=== PATIENT | female | born 1945 | race Caucasian/White ===

== ENCOUNTER 2016-12-26 12:44 | Emergency (ER) | payer MEDICARE, BC ==
[2013-05-27 15:21] VITALS: BMI 32.7
[~2016-12-26 12:44] MED LIST: AMBIEN10 MG PO; ASPIRIN 81 MG E81 MG PO; BETAPACE 80 MG80 MG PO; CARDIZEM120 MG PO; CO Q1060 MG PO; CORDARONE200 MG PO; COREG12.5 MG PO; CRANBERRY PILLS PO; FLAXSEED OIL1000 MG PO; HAWTHORN PO; KRILL OIL PO; LIORESAL 10 MG10 MG PO; MAXZIDE-25 MG T1 TAB PO; MILK THISTLE140 MG PO; MULTIPLE VITAMI1 TA1 PO; NORCO 10/325 TA1 TA1 PO; PLAVIX75 MG PO; PROBIOTICS PO; SLOW-MAG 64 MG64 MG PO; VITAMIN D31000 UNIT PO
[2016-12-26 13:38] LABS: BASOPHILS 0.3 % (0-2); EOSINOPHILS 1.5 % (0-7); HEMATOCRIT 44.8 % (36.0-48.0); HEMOGLOBIN 14.8 g/dL (12-16); IMMATURE GRANULOCYTES 0.3 % (0-5); LYMPHOCYTES 32.3 % (15-50); MCH 28.2 pg (26.0-34.0); MCV 85.3 fL (80.0-100.0); MEAN PLATELET VOLUME 10.2 fL (7.4-10.4); MONOCYTES 6.9 % (2-11); NEUTROPHILS 58.7 % (40-80); PLATELET COUNT 274 10x3/uL (130-400); RBC 5.25 10x6/uL (4.00-5.40); RDW 13.8 % (11.5-14.5); WBC 6.1 10x3/uL (4.8-10.8)
[2016-12-26 13:58] LABS: ALBUMIN 3.9 g/dL (3.4-5.0); ALKALINE PHOSPHATASE 112 U/L (46-116); ALT (SGPT) 22 U/L (10-68); BILIRUBIN - TOTAL 0.36 mg/dL (0.2-1.3); CALC OSMOLALITY 279 mosm/kg (275-300); CALCIUM 9.1 mg/dL (8.5-10.1); CARBON DIOXIDE 25.9 mmol/L (21.0-32.0); CHLORIDE - SERUM 102 mmol/L (98-107); CREATININE - SERUM 0.8 mg/dL (0.6-1.3); GLUCOSE 96 mg/dL (74-106); POTASSIUM - SERUM 4.2 mmol/L (3.5-5.1); SODIUM 138 mmol/L (136-145); UREA NITROGEN 23 mg/dL (7-18); eGFR NON AFRICAN AMERICAN 75 mL/min (90-120)
== END 2016-12-26 14:55 | disposition home or self-care (01) ==
LOC: D.ER 12:44
PROVIDERS: Emergency Medicine
DX: I48.91 Unspecified atrial fibrillation (principal); I50.9 Heart failure, unspecified; I10 Essential (primary) hypertension

== ENCOUNTER 2017-01-20 09:21 | Outpatient (CLI) | payer MEDICARE, BC ==
--- NOTE | ~2017-01-20 | HEMODYNAMI ---
PATIENT:JAMES RUTHERFORD MEDICAL RECORD: [id number] : 47 LOCATION:[facility] ADMISSION DATE: 01/20/17 Generatedon:01/20/201711:02 Patient name: JAMES RUTHERFORD Patient #: [id number] SSN: : 1945 Date of study: 01/20/2017 Page: Of Hemodynamic Procedure Report Patient Data Patient Demographics Procedure consent was obtained First Name: JAMES Gender: Female Last Name: SANGEETA : 1945 [facility] Initial: JEN Age: 71 year(s) Patient #: [id number] Race: Unknown Additional ID: [id number] Contact details Address: [place] [address] State: [place] City: [place] Zip code: [address] Past Medical History Allergies: No known allergies Admission Admission Data Admission Date: 01/20/2017 Admission Time: 9:21 Admit Source: Other Height (in.): 65 BSA: 2.03 (m2) Height (cm.): 165.1 BMI: 35.44 (kg/m2) Weight (lbs.): 213 Weight (kg.): 96.62 Lab Results Lab Result Date: 01/20/2017 Lab Result Time: 0:00 Biochemistry Name Units Result Min Max BUN mg/dl 23 --(----)-* 7 18 Creatinine mg/dl 1 --(--*-)-- 0.6 1.3 CBC Name Units Result Min Max Hemoglobin g/dl 14.4 --(*---)-- 13.5 17.5 Procedure Procedure Types Cath Procedure Diagnostic Procedure LHC LHC w/Coronaries Miscellaneous Procedures Moderate Sedation up to 15 minutes Procedure Description Procedure Date Procedure Date: 01/20/2017 Procedure Start Time: 10:56 Procedure End Time: 11:02 Procedure Staff Name Function Yeyo Barnhart MD Performing Physician Mela Renae RT Scrub Sunshine Martínez RT Monitor Kirby Barba RN Nurse Procedure Data Cath Procedure Fluoroscopy Diagnostic fluoroscopy Total fluoroscopy Time: 0.8 time: 0.8 min min Diagnostic fluoroscopy Total fluoroscopy dose: 150 dose: 150 mGy mGy Contrast Material Contrast Material Type Amount (ml) Isovue 300 47 Entry Location Entry Primary Successful Side Size Upsize Upsize Entry Closure Succes sful Closure Location (Fr) 1 (Fr) 2 (Fr) Remarks Device Remarks Femoral Right 5 Fr Exoseal artery Estimated blood loss: 10 ml Diagnostic catheters Device Type Used For End Catheter Placement Cordis 5Fr Pigtail Procedure Catheter (MP) Cordis 5Fr JL 4.0 Procedure Catheter (MP) Cordis 5Fr 3DRC Catheter Procedure (MP) Procedure Complications No complications Procedure Medications Medication Administration Route Dosage Oxygen NC 2 l/min Heparin Flush Bag added to field 2 bags (1000units/500ml NS) 0.9% NaCl I.V. 100 ml/hr Fentanyl I.V. 50 mcg Versed I.V. 1 mg Fentanyl I.V. 50 mcg Versed I.V. 1 mg Fentanyl I.V. 50 mcg Fentanyl I.V. 50 mcg Hemodynamics Rest BSA: 2.03 (m2) HGB: 14.4 (g/dl) O2 Consumption: Estimated: 173.94 (ml/min) O2 Co nsumption indexed: Estimated:85.68 (ml/min/m) Heart Rate: 53 (bpm) Pressure Samples Time Site Value (mmHg) Purpose Heart Use Rate(bpm) 10:57 LV 145/12,17 Snapshot 62 Snapshots Pre Cath Intra NCS Post Cath Vital Signs Time Heart Resp SPO2 etCO2 NIBP (mmHg) Rhythm Pain Sedation Rate (ipm) (%) (mmHg) Status Level (bpm) 10:42:49 57 16 96 0 169/73(117) NSR 0 (11) 10(A) , No pain 10:47:21 53 19 96 41.8 153/60(124) NSR 0 (11) 10(A) , No pain 10:51:46 52 18 94 35.8 138/64(105) NSR 0 (11) 10(A) , No pain 10:56:45 56 17 99 36.5 Measuring NSR 0 (11) 10(A) , No pain 10:57:07 51 17 98 37.3 136/53(102) NSR 0 (11) 10(A) , No pain 11:01:31 51 18 96 34.3 130/56(109) NSR 0 (11) 9(A) , No pain Medications Time Medication Route Dose Verified Delivered Reason Notes Effec tiveness by by 10:44:04 Oxygen NC 2 Yeyo Orr Per l/min Bronwyn Barba RN physician 10:44:13 Heparin Flush added 2 Yeyo Orr used for Bag to bags Bronwyn Barba RN procedure (1000units/500ml field NS) 10:44:23 0.9% NaCl I.V. 100 Yeyo Orr Per ml/hr Bronwyn Barba RN physician 10:53:03 Fentanyl I.V. 50 Yeyo Orr for matt Barba RN sedation 10:53:09 Versed I.V. 1 mg Yeyo Orr for Bronwyn Barba RN sedation 10:56:05 Fentanyl I.V. 50 Yeyo Davisy for matt Barba RN sedation 10:56:10 Versed I.V. 1 mg Yeyo Orr for Bronwyn Barba RN sedation 10:57:22 Fentanyl I.V. 50 Yeyo Orr for matt Barba RN sedation 10:59:28 Fentanyl I.V. 50 Yeyo Davisy for matt Barba RN sedation Procedure Log Time Note 9:50:07 Kirby Barba RN sent for patient. Start room use. 10:28:55 Patient Height : 65 inches 10:28:58 Patient Weight : 213 lbs 10:29:00 Admit Source: Other 10:33:29 Lab Result : BUN 23 mg/dl 10:33:29 Lab Result : Hemoglobin 14.4 g/dl 10:33:29 Lab Result : Creatinine 1 mg/dl 10:34:04 Diagnostic Cath status Elective 10:34:31 Time tracking: Regular hours 10:34:36 Plan of Care:Hemodynamics will remain stable., Cardiac rhythm will remain stable., Comfort level will be maintained., Respiratory function will remain adequate., Patient/ family verbilizes understanding of procedure., Procedure tolerated without complication., Recovers from procedure without complications.. 10:34:44 Patient received from Pre/Post Procedure Room to CCL 3 Alert and oriented. Tansferred to table in Supine position. 10:34:46 Warm blankets applied, and hortencia hugger turned on for patient comfort. 10:34:46 Correct patient and procedure confirmed by team. 10:34:48 Signed procedure consent form obtained from patient. 10:35:02 H&P Date Dictated: 01/09/2017 Within 30 days and on chart., H&P Addendum completed by physician on day of procedure. (MUST COMPLETE FOR ALL OUTPATIENTS). 10:35:03 Pre-procedure instructions explained to patient. 10:35:05 Family in waiting room. 10:35:08 Patient NPO since Midnight. 10:35:28 Patient allergic to No known allergies 10:35:32 Is the patient allergic to Iodine/contrast media? No. 10:35:42 Is patient on blood thinner?No 10:35:45 Patient diabetic? No. 10:35:50 Snore? Yes 10:35:51 Sleep apnea? No 10:36:22 IV patent on arrival in left forearm with 0.9% NaCl at [facility]. 10:36:30 Lab results completed and on chart. 10:36:34 Right Radial & Right Groin area was prepped with chlora-prep and draped in sterile fashion 10:36:35 Alarms reviewed by R. N. 10:36:36 Sharps counted by scrub and verified by R.N. 10:41:12 ECG and BP/O2 sat monitors applied to patient. 10:41:17 Vital chart was started 10:42:00 Full Disclosure recording started 10:44:04 Oxygen 2 l/min NC was administered by Kirby Barba RN; Per physician; 10:44:13 Heparin Flush Bag (1000units/500ml NS) 2 bags added to field was administered by Kirby Barba RN; used for procedure; 10:44:23 0.9% NaCl 100 ml/hr I.V. was administered by Kirby Barba RN; Per physician; 10:47:08 Baseline sample Acquired. 10:47:14 Rhythm: sinus rhythm 10:47:21 Physician paged 10:52:01 Zero performed for pressure channel P1 10:52:06 Zero performed for pressure channel P1 10:52:14 Zero performed for pressure channel P1 10:52:34 Physician arrived 10:52:35 --------ALL STOP TIME OUT------ 10:52:36 Final Timeout: patient, procedure, and site verified with staff and physician. All members of the team are in agreement. 10:52:38 Right groin site verified by team. 10:52:43 Physical assessment completed. ASA score P 2 - A patient with mild systemic disease as per Yeyo Barnhart MD. 10:52:46 Sedation plan: IV Moderate Sedation Versed, Fentanyl 10:53:03 Fentanyl 50 mcg I.V. was administered by Kirby Barba RN; for sedation; 10:53:09 Versed 1 mg I.V. was administered by Kirby Barba RN; for sedation; 10:55:46 Use device set Femoral Dx 10:55:47 Acist Syringe opened to sterile field. 10:55:47 Bag Decanter opened to sterile field. 10:55:48 Medline Cath Pack opened to sterile field. 10:55:48 Terumo 5Fr [place] Sheath opened to sterile field. 10:55:49 St Gerardo 260cm J .035 wire opened to sterile field. 10:55:50 Acist Hand Control opened to sterile field. 10:55:51 Acist Manifold opened to sterile field. 10:55:51 Diagnostic Infinity 5Fr Multipack catheter opened to sterile field. 10:55:51 Tegaderm 4 x 4 opened to sterile field. 10:55:56 Procedure started. 10:56:05 Fentanyl 50 mcg I.V. was administered by Kirby Barba RN; for sedation; 10:56:08 Local anesthetic to right femoral artery with Lidocaine 2% by Yeyo Barnhart MD.INITIAL ACCESS ONLY 10:56:10 Versed 1 mg I.V. was administered by Kirby Barba RN; for sedation; 10:56:24 A 5 Fr sheath was inserted into the Right Femoral artery 10:56:42 A Cordis 5Fr Pigtail Catheter (MP) was advanced over the wire and used for Procedure. 10:57:22 Fentanyl 50 mcg I.V. was administered by Kirby Barba RN; for sedation; 10:57:28 EF : 60 % 10:57:41 Catheter removed. 10:57:49 A Cordis 5Fr JL 4.0 Catheter (MP) was advanced over the wire and used for Procedure. 10:58:56 Catheter removed. 10:59:04 A Cordis 5Fr 3DRC Catheter (MP) was advanced over the wire and used for Procedure. 10:59:14 Catheter removed. 10:59:21 Cordis 5Fr Exoseal opened to sterile field. 10:59:28 Fentanyl 50 mcg I.V. was administered by Kirby Barba RN; for sedation; 10:59:40 Sheath removed intact; hemostasis achieved with Exoseal to the Right Femoral artery. 10:59:56 Procedure ended.(Physican Out) 11:00:39 Fluoroscopy time 00.80 minutes. 11:00:43 Flurop Dose total: 150 11:00:43 Fluoroscopy dose: 150 mGy 11:00:49 Contrast amount:Isovue 300 47ml. 11:01:04 Sharps counted by scrub and verified by R.N. 11:01:10 Insertion/operative site no bleeding no hematoma. 11:01:23 Post-op/insertion site Right Femoral artery dressed using a 4 x 4 and Tegaderm. 11:01:27 Post right femoral artery:stable 11:01:29 Post Procedure Pulses reassessed and unchanged 11:01:33 Post-procedure physical assessment completed. ASA score P 2 - A patient with mild systemic disease as per Yeyo Barnhart MD. 11:01:45 Post procedure rhythm: unchanged. 11:01:48 Estimated blood loss: 10 ml 11:01:50 Post procedure instruction explained to patient.Patient verbalizes understanding. 11:02:00 Procedure and supply charges have been captured, reviewed, submitted and are correct. 11:02:05 Procedure Complication : No complications 11:02:08 Vital chart was stopped 11:02:08 See physician's report for complete and final results. 11:02:10 Report given to Pre/Post Procedure Room. 11:02:14 Patient transfered to Pre/Post Procedure Room with Bed. 11:02:16 Procedure ended. 11:02:16 Full Disclosure recording stopped 11:02:20 End room use (Document Last) Device Usage Item Name Manufacture Quantity Catalog Hospital Part Current Minimal Lo t# / Number Charge Number Stock Stock Serial# Code Acist Acist 1 [id number] [id number] 20 Syringe [employer] Inc Bag Microtek 1 2002S [id number] 74632 [id number] 5 Decanter [employer] Inc. Medline Cardinal 1 [id number] [id number] 10714 625390 5 Cath Pack Health Terumo 5Fr Terumo 1 [id number] 907097 583200 714197 [address] Gerardo 1 803789 250660 634483 556485 30 260cm J .035 wire Acist Hand Acist 1 89704 686802 087182 645282 5 Control [employer] Systems Inc Acist Acist 1 17201 783427 473143 925259 5 Manifold Medical [employer] Inc Diagnostic Cardinal 1 [id number] 520175 89913 542858 30 Infinity Health 5Fr Multipack catheter Tegaderm 4 3M 1 1626W 725974 036740 054262 5 x 4 Cordis 5Fr Cardinal 1 592051 5 Pigtail Health Catheter (MP) Cordis 5Fr Cardinal 1 588298 5 JL 4.0 Health Catheter (MP) Cordis 5Fr Cardinal 1 851723 5 3DRC Health Catheter (MP) Cordis 5Fr Cardinal 1 EX500 196482 045158 890941 10 [employer] Signature Audit [place] Stage Time Signature Unsigned Intra-Procedure 01/20/2017 Sunshine Martínez 11:02:42 AM RT(R) Signatures Monitor : Sunshine Martínez Signature : RT Date : Time : [place] [id number] [place] [id number]
[2017-01-20] MEDS ORDERED: ENDOCET 10-3251 TAB PO (09:33)
[2017-01-20] MEDS ORDERED: GABAPENTIN100 MG PO (09:34)
[2017-01-20] MEDS ORDERED: HYZAAR 100-25 T1 TAB PO (09:35)
[2017-01-20] MEDS ORDERED: FUROSEMIDE20 MG PO (09:35)
[2017-01-20] MEDS ORDERED: BIOTIN5 MG PO (09:38)
[2017-01-20 09:47] VITALS: BP 154/51; BMI 34.4
[2017-01-20 10:05] LABS: BASOPHILS 0.7 % (0-2); HEMATOCRIT 44.2 % (36.0-48.0); HEMOGLOBIN 14.4 g/dL (12-16); IMMATURE GRANULOCYTES 0.2 % (0-5); LYMPHOCYTES 27.7 % (15-50); MCH 28.1 pg (26.0-34.0); MCHC 32.6 g/dL (31.0-37.0); MCV 86.3 fL (80.0-100.0); MEAN PLATELET VOLUME 9.8 fL (7.4-10.4); MONOCYTES 6.7 % (2-11); NEUTROPHILS 62.7 % (40-80); PLATELET COUNT 263 10x3/uL (130-400); RBC 5.12 10x6/uL (4.00-5.40); RDW 13.6 % (11.5-14.5); WBC 6.1 10x3/uL (4.8-10.8)
[2017-01-20 10:23] LABS: ANION GAP 14.9 mmol/L (8-16); CALCIUM 9.5 mg/dL (8.5-10.1); CARBON DIOXIDE 27.5 mmol/L (21.0-32.0); POTASSIUM - SERUM 3.4 mmol/L (3.5-5.1)
--- NOTE | 2017-01-20 11:50 | NUR ---
1130 CONTINUES TO LAY FLAT, ALL VITALS WNL. 2L NC WHILE SLEEPING. R GROIN 5F EXOSEAL C/D/I W NO HEMATOMA OR BLEEDING. NO FAMILY AT BEDSIDE.
--- NOTE | 2017-01-20 12:30 | NUR ---
1200 AWAKE, ROOM AIR, SBRADY, RATE 54 W NO C/O CHEST PAIN. PULSES PALP X 4. R GROIN 5F EXOSEAL C/D/I W NO HEMATOMA OR BLEEDING.
--- NOTE | 2017-01-20 12:33 | NUR ---
1230 HOB ELEVATED, EATING TURKEY SANDWICH AND SIPPING SODA. WILL MONITOR R GROIN FOR BLEEDING. CALLED FOR RIDE TO LEAVE AT 1300.
--- NOTE | 2017-01-20 12:40 | NUR ---
PIV REMOVED WITH BANDAID APPLIED. R GROIN REMAINS C/D/I W NO HEMATOMA OR BLEEDING.
--- NOTE | 2017-01-20 12:54 | NUR ---
UP TO BEDSIDE TO DRESS. R GROIN REMAINS C/D/I W NO HEMATOMA OR BLEEDING. D/C INSTRUCTIONS DISCUSSED WITH PATIENT AT BEDSIDE.
--- NOTE | 2017-01-20 13:13 | NUR ---
WHEELED OUT VIA WHEELCHAIR BY CATH TEAM.
--- NOTE | 2017-01-21 16:42 | OP ---
PATIENT NAME: JAMES RUTHERFORD MEDICAL RECORD: [id number] :47 LOCATION:[facility] ADMISSION DATE: SURGEON: MARIA E TONEY MD DATE OF OPERATION: 01/20/2017 PROCEDURES: 1. Left heart catheterization. 2. Selective coronary angiography. 3. Left ventriculogram. DESCRIPTION OF PROCEDURE: After informed consent was obtained and after detailed explanation of risks, benefits as well as alternative therapies, the patient elected to proceed with angiogram and heart catheterization. The right femoral area was prepped and draped in normal sterile fashion. The right femoral artery was cannulated via modified Seldinger technique with placement of 5-Setswana sheath. All catheters exchanged through this sheath. FINDINGS: The left ventriculogram was performed in the standard 30-degree TIAN view reveals good cardiac wall motion throughout all segments. Overall ejection fraction estimated at 60%. SELECTIVE CORONARY ANGIOGRAPHY: Left main, left anterior descending, left circumflex, right coronary artery are all smooth-walled vessels with no angiographic evidence of coronary artery disease. OVERALL IMPRESSION: 1. No angiographic evidence of coronary artery disease. 2. Normal left heart pressures. 3. Normal left ventricular systolic function. Chest pain is noncardiac in etiology. No further cardiac workup needs to be ascertained. 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
== END 2017-01-20 13:13 | disposition home or self-care (01) ==
LOC: D.CATH 09:21
PROVIDERS: Internal Medicine Interventional Cardiology
DX: I20.9 Angina pectoris, unspecified (principal); I10 Essential (primary) hypertension; I48.0 Paroxysmal atrial fibrillation; R06.02 Shortness of breath; Z01.812 Encounter for preprocedural laboratory examination

== ENCOUNTER 2019-06-22 17:55 | Emergency (ER) | payer MEDICARE, BC ==
[~2019-06-22] VITALS: Ht 162.6 cm; Wt 88.6 kg
[~2019-06-22 17:55] MED LIST changes: +BIOTIN5 MG PO; +ENDOCET 10-3251 TAB PO; +FUROSEMIDE20 MG PO; +GABAPENTIN100 MG PO; +HYZAAR 100-25 T1 TAB PO
[2019-06-22 18:00] VITALS: Ht 162.6 cm; Wt 88.6 kg
[2019-06-22 18:29] LABS: BASOPHILS 0.4 % (0-2); EOSINOPHILS 1.1 % (0-7); HEMATOCRIT 44.7 % (36.0-48.0); HEMOGLOBIN 13.7 g/dL (12-16); IMMATURE GRANULOCYTES 0.2 % (0-5); LYMPHOCYTES 28.2 % (15-50); MCH 27.4 pg (26.0-34.0); MCHC 30.6 g/dL (31.0-37.0); MCV 89.4 fL (80.0-100.0); MEAN PLATELET VOLUME 9.6 fL (7.4-10.4); MONOCYTES 5.3 % (2-11); NEUTROPHILS 64.8 % (40-80); PLATELET COUNT 247 10x3/uL (130-400); RDW 14.4 % (11.5-14.5); WBC 5.6 10x3/uL (4.8-10.8)
[2019-06-22 18:40] LABS: APTT 25.6 SECONDS (22.8-39.4); INR 0.97 (0.85-1.17); PROTIME 12.8 SECONDS (11.6-15.0)
[2019-06-22 18:47] LABS: CALC OSMOLALITY 281 mosm/kg (275-300); CALCIUM 8.7 mg/dL (8.5-10.1); CHLORIDE - SERUM 103 mmol/L (98-107); CREATININE - SERUM 0.8 mg/dL (0.6-1.3); GLUCOSE 113 mg/dL (74-106); POTASSIUM - SERUM 4.8 mmol/L (3.5-5.1); SODIUM 138 mmol/L (136-145); UREA NITROGEN 26 mg/dL (7-18); eGFR NON AFRICAN AMERICAN 74 mL/min (90-120)
[2019-06-22 19:03] LABS: ALKALINE PHOSPHATASE 112 U/L (30-120); ALT (SGPT) 21 U/L (10-68); BILIRUBIN - TOTAL 0.29 mg/dL (0.2-1.3); CKMB 0.3 U/L (0.0-3.6); CREATINE KINASE 62 UL (21-215); MAGNESIUM - SERUM 2.4 mg/dL (1.8-2.4); PROTEIN - SERUM 7.3 g/dL (6.4-8.2)
[2019-06-22 19:09] LABS: TROPONIN-I < 0.017 ng/mL (0.000-0.060)
[2019-06-22] MEDS ORDERED: XARELTO20 MG PO (21:17)
[2019-06-22 21:48] VITALS: BP 149/90
== END 2019-06-22 21:49 | disposition home or self-care (01) ==
LOC: D.ER 17:55
PROVIDERS: Family Medicine
DX: I48.91 Unspecified atrial fibrillation (principal); I10 Essential (primary) hypertension; I20.9 Angina pectoris, unspecified